=== PATIENT | female | born 1955 | race Caucasian/White ===

== ENCOUNTER 2017-06-16 15:08 | Emergency (ER) | payer OTHER ==
[~2017-06-16] VITALS: Ht 167.6 cm; Wt 76.2 kg
[2017-06-16 15:20] VITALS: BP 128/93
--- NOTE | 2017-06-16 15:39 | NUR ---
AMBULATORY TO BED 15. C/O R MIDDLE FINGER PAIN.
== END 2017-06-16 17:05 | disposition home or self-care (01) ==
LOC: ED 15:08 → DU 16:37 → ED 16:37
DX: S62.602A Fracture of unspecified phalanx of right middle finger, initial encounter for closed fracture (principal); Z79.899 Other long term (current) drug therapy; E78.00 Pure hypercholesterolemia, unspecified; E03.9 Hypothyroidism, unspecified; X58.XXXA Exposure to other specified factors, initial encounter; Y93.89 Activity, other specified; Y99.8 Other external cause status; Y92.89 Other specified places as the place of occurrence of the external cause
CPT/HCPCS: Q0092

== ENCOUNTER 2019-02-28 21:46 | Emergency (ER) | payer OTHER ==
[2019-02-28 21:49] VITALS: Ht 167.6 cm
[2019-03-01 00:54] VITALS: BP 122/68
== END 2019-03-01 00:53 | disposition home or self-care (01) ==
LOC: ED 21:46
DX: J40 Bronchitis, not specified as acute or chronic (principal); J06.9 Acute upper respiratory infection, unspecified; E03.9 Hypothyroidism, unspecified; E78.00 Pure hypercholesterolemia, unspecified; Z79.899 Other long term (current) drug therapy
CPT/HCPCS: 87804; J7512; J7613

== ENCOUNTER 2019-09-28 14:56 | Emergency (ER) | payer OTHER ==
[~2019-09-28] VITALS: Ht 170.2 cm; Wt 91.6 kg
[2019-09-28 14:59] VITALS: Ht 170.2 cm; Wt 91.6 kg
[2019-09-28 15:36] LABS: BASOPHIL % 1.6 % (0-2); PLATELET COUNT 214 x10^3mcL (130-400); RED CELL DISTRIBUTION WIDTH 13.5 % (11.5-14.5)
[2019-09-28 15:55] LABS: CALCIUM 9.5 mg/dL (8.5-10.1); CARBON DIOXIDE 27.6 mmol/L (21-32); POTASSIUM SERUM 4.4 mmol/L (3.5-5.1)
[2019-09-28 16:00] LABS: ALBUMIN 3.9 g/dL (3.4-5.0); BILIRUBIN TOTAL 0.34 mg/dL (0.20-1.00); TOTAL PROTEIN, SERUM 7.6 g/dL (6.4-8.2)
[2019-09-28 16:49] LABS: microscopic required? YES; urine erythrocyte TRACE (NEGATIVE)
[2019-09-28 17:08] VITALS: BP 113/73
== END 2019-09-28 17:08 | disposition home or self-care (01) ==
LOC: ED 14:56
PROVIDERS: Emergency Medicine
DX: H81.10 Benign paroxysmal vertigo, unspecified ear (principal); E78.00 Pure hypercholesterolemia, unspecified; E03.9 Hypothyroidism, unspecified
CPT/HCPCS: J2765; J7030; J8597